=== PATIENT | female | born 2000 | race Two or more races ===

== ENCOUNTER 2019-07-25 21:09 | Emergency (ER) | payer MEDICAID ==
[~2019-07-25] VITALS: Ht 162.6 cm; Wt 81.6 kg
--- NOTE | 2019-07-25 21:15 | NUR ---
ED Nurse Note: IV ACCESS ESTABLISHED. BLOOD COLLECTED; SENT DOWN TO LAB.
[2019-07-25 21:30] VITALS: BP 142/98
[2019-07-25] MEDS ORDERED: Morphine Sulfate 4mg/ml Inj (IV USE ONLY) IVP ONE (21:30)
--- NOTE | 2019-07-25 21:30 | NUR ---
ED Nurse Note: PT ARRIVED WITH RA 861 D/T INCREASED VAGINAL BLEEDING X 1 DAY. PT IS RESTLESS, GROINING, AND APPEARS PALE. PER PT HER CALLED 911. [facility]
--- NOTE | 2019-07-25 21:45 | NUR ---
ED Nurse Note: PELVIC EXAM CONDUCTED BY ERMD, PT EXPELLED REMINANTS OF FETUS. SPECIMEN SENT TO LAB.
[2019-07-25 21:48] LABS: HEMATOCRIT 42.7 % (37.0-47.0); HEMOGLOBIN 14.6 G/DL (12.0-16.0); MEAN CORPUSCULAR VOLUME 88 FL (80-99); PLATELET COUNT 361 K/UL (150-450); RED BLOOD COUNT 4.87 M/UL (4.20-5.40); RED CELL DISTRIBUTION WIDTH 11.3 % (11.6-14.8); WHITE BLOOD COUNT 20.2 K/UL (4.8-10.8)
[2019-07-25 21:51] LABS: ANION GAP 15 mmol/L (5-15); BLOOD UREA NITROGEN 9 mg/dL (7-18); CARBON DIOXIDE 19 MMOL/L (21-32); CHLORIDE 104 MMOL/L (98-107); CREATININE 0.9 MG/DL (0.55-1.30); POTASSIUM 3.4 MMOL/L (3.5-5.1); SODIUM 138 MMOL/L (136-145)
[2019-07-25 21:55] LABS: ALANINE AMINOTRANSFERASE 17 U/L (12-78); ALBUMIN 3.8 G/DL (3.4-5.0); ALBUMIN/GLOBULIN RATIO 0.8 (1.0-2.7); ALKALINE PHOSPHATASE 89 U/L (46-116); ASPARTATE AMINO TRANSFERASE 16 U/L (15-37); BILIRUBIN,TOTAL 0.6 MG/DL (0.2-1.0)
--- NOTE | 2019-07-25 22:15 | NUR ---
ED Nurse Note: US WAS PAGED; AWAITING FOR ARRIVAL.
--- NOTE | 2019-07-25 22:30 | NUR ---
ED Nurse Note: PT MOTHER (KIERA) AT BEDSIDE.
--- NOTE | 2019-07-25 23:10 | NUR ---
ED Nurse Note: US AT BEDSIDE
[2019-07-25 23:30] VITALS: BP 134/97
[2019-07-26] VITALS: BP 100/62
--- NOTE | 2019-07-26 00:06 | Emergency Room Report ---
History of Present Illness General Chief Complaint: Complications Source: Patient Present Illness HPI 19-year-old female G3, P2 7 weeks presents with acute bleeding x1 day patient with lower abdominal pain no aggravating relieving factors severity is severe symptoms are constant, patient was scheduled for a D&C at [facility], patient is B+ Allergies: Coded Allergies: No Known Allergies (Unverified , 07/25/19) Patient History Past Medical History: see triage record Now: Yes Reviewed Nursing Documentation: PMH: Agreed; PSxH: Agreed Nursing Documentation-PMH Past Medical History: No Stated History Review of Systems All Other Systems: negative except mentioned in HPI Physical Exam Vital Signs Date Time Temp Pulse Resp B/P (MAP) Pulse Ox O2 Delivery O2 Flow Rate FiO2 07/25/19 21:01 97.3 92 26 142/98 (113) 98 Room Air Sp02 EP Interpretation: reviewed, normal General Appearance: alert, severe distress Head: normocephalic, atraumatic Eyes: bilateral eye PERRL, bilateral eye EOMI ENT: uvula midline, moist mucus membranes Neck: supple, thyroid normal, supple/symm/no masses Respiratory: lungs clear, no respiratory distress, no retraction, no accessory muscle use Cardiovascular #1: normal peripheral pulses, no edema, no gallop, no murmur, tachycardia Gastrointestinal: soft, tenderness - Suprapubically Genitourinary: other - Fetus is being expelled, fisher seal Alena Zamorano Musculoskeletal: normal inspection Neurologic: alert, oriented x3 Psychiatric: mood/affect normal Skin: no rash, warm/dry Medical Decision Making Diagnostic Impression: Primary Impression: Complication of Qualified Codes: O26.91 - related conditions, unspecified, first trimester Additional Impressions: Threatened Miscarriage ER Course 19-year-old female presents with threatened , currently actively aborting. Patient still has retained contents of conception on ultrasound Patient was to be scheduled for a D&C 07/26/2019 at [facility] Will transfer patient pain is well controlled H&H is stable, patient is no longer tachycardic pain is well controlled Spoke with Dr. Agee at 1:13AM who accepted patient, will transfer patient to [facility] Laboratory Tests Test 07/25/19 21:15 07/25/19 21:53 White Blood Count 20.2 K/UL (4.8-10.8) H Red Blood Count 4.87 M/UL (4.20-5.40) Hemoglobin 14.6 G/DL (12.0-16.0) Hematocrit 42.7 % (37.0-47.0) Mean Corpuscular Volume 88 FL (80-99) Mean Corpuscular Hemoglobin 29.9 PG (27.0-31.0) Mean Corpuscular Hemoglobin Concent 34.2 G/DL (32.0-36.0) Red Cell Distribution Width 11.3 % (11.6-14.8) L Platelet Count 361 K/UL (150-450) Mean Platelet Volume 8.0 FL (6.5-10.1) Neutrophils (%) (Auto) % (45.0-75.0) Lymphocytes (%) (Auto) % (20.0-45.0) Monocytes (%) (Auto) % (1.0-10.0) Eosinophils (%) (Auto) % (0.0-3.0) Basophils (%) (Auto) % (0.0-2.0) Differential Total Cells Counted 100 Neutrophils % (Manual) 72 % (45-75) Lymphocytes % (Manual) 19 % (20-45) L Monocytes % (Manual) 5 % (1-10) Eosinophils % (Manual) 2 % (0-3) Basophils % (Manual) 0 % (0-2) Band Neutrophils 2 % (0-8) Platelet Estimate Adequate Platelet Morphology Normal Red Blood Cell Morphology Normal Sodium Level 138 MMOL/L (136-145) Potassium Level 3.4 MMOL/L (3.5-5.1) L Chloride Level 104 MMOL/L (98-107) Carbon Dioxide Level 19 MMOL/L (21-32) L Anion Gap 15 mmol/L (5-15) Blood Urea Nitrogen 9 mg/dL (7-18) Creatinine 0.9 MG/DL (0.55-1.30) Estimate Glomerular Filtration Rate > 60 mL/min (>60) Glucose Level 108 MG/DL (74-106) H Calcium Level 10.0 MG/DL (8.5-10.1) Total Bilirubin 0.6 MG/DL (0.2-1.0) Aspartate Amino Transferase (AST) 16 U/L (15-37) Alanine Aminotransferase (ALT) 17 U/L (12-78) Alkaline Phosphatase 89 U/L (46-116) Total Protein 8.5 G/DL (6.4-8.2) H Albumin 3.8 G/DL (3.4-5.0) Globulin 4.7 g/dL Albumin/Globulin Ratio 0.8 (1.0-2.7) L Lipase 131 U/L (73-393) Human Chorionic Gonadotropin, Quant 3195 mIU/mL (1-6) H Prothrombin Time 10.6 SEC (9.30-11.50) Prothrombin Time INR 1.0 (0.9-1.1) PTT 26 SEC (23-33) CT/MRI/US Diagnostic Results CT/MRI/US Diagnostic Results : Impression Preliminary Findings Only See Final Report For Complete Findings US PELVIS: Limited exam due to intolerable exam per patient. Endometrium is thickened and heterogeneous in appearance (measurement cannot be taken). No definite hypervascularity is seen. May represent underlying blood products although retained products is not excluded given the heterogeneity and limitation of the exam. Right ovary is normal. No adnexal mass. Left adnexa is unremarkable. Left ovary was not seen. Radiologist: Steve Garcia MD Study ready at 00:06 and initial results transmitted at 00:16 Last Vital Signs Date Time Temp Pulse Resp B/P (MAP) Pulse Ox O2 Delivery O2 Flow Rate FiO2 07/25/19 21:58 97.4 07/25/19 21:01 92 26 142/98 (113) 98 Room Air Disposition: XFER [facility] - [facility] Condition: Stable Scripts No Active Prescriptions or Reported Meds Referrals: NOT CHOSEN IPA/,REFERRING (PCP) Polo Casarez MD Jul 26, 2019 00:06
--- NOTE | 2019-07-26 00:17 | Diagnostic Imaging Report ---
Indication: Vaginal bleeding, ten-week patient Technique: Transabdominal and transvaginal images of the pelvis Comparison: none Findings: Transvaginal imaging is very limited due to inability of patient to optimally tolerate. Transabdominal imaging is limited due to lack of bladder distention. Uterus measures 11.3 cm length by 5.8 cm AP. No intrauterine is demonstrated. There is ill-defined thickening of the endometrium which is minimally heterogeneous. The right ovary measures 3.3 cm in length. The left ovary cannot be visualized. No free cul-de-sac fluid. No gross myometrial abnormality. Impression: No intrauterine demonstrated. Given stated clinical history of prior documented intrauterine and history of passing clots, this most likely represents a spontaneous . Nonetheless, correlation with clinical findings and serial beta-hCGs is recommended. Consider follow-up sonography as indicated Minimal ill-defined thickening and heterogeneously T of the endometrium. Appearance is nonspecific, small amount of retained products of conception not completely excludable. No nonvisualization of the left ovary This agrees with the preliminary interpretation provided overnight by [facility] teleradiology service.
--- NOTE | 2019-07-26 00:30 | NUR ---
ED Nurse Note: ABRIL AT BEDSIDE
[2019-07-26 01:00] VITALS: BP 100/44
--- NOTE | 2019-07-26 01:00 | NUR ---
ED Nurse Note: PT WAS CLEANED AND CHANGED. BEDSHEETS AND LINENES REPLACED. ADDITIONAL BLANKETS PROVIDED
--- NOTE | 2019-07-26 02:20 | NUR ---
ED Nurse Note: PT CURRENTLY IN BED RESTING WAITING FOR TRANSPORT.
--- NOTE | 2019-07-26 02:20 | NUR ---
ED Nurse Note: FOLLOWED OF WITH [facility], PER CRN TRANSPORT INFO IS NOT READY. UNABLE TO ENDORSE PT TO [facility] AT THIS TIME
[2019-07-26 03:00] VITALS: BP 104/62
--- NOTE | 2019-07-26 03:07 | NUR ---
ED Nurse Note: TELEPHONE REPORT GIVEN TO ERICKA LUCAS FROM [facility] FOR CONTINUITY OF CARE
--- NOTE | 2019-07-26 03:27 | NUR ---
ED Nurse Note: EMS AT THE BEDSIDE, REPORT GIVEN TO [facility], CARE ENDORSED TO EMS STAFF. PT VSS, IV INTACT AND PATENT. SUMMARY OF CARE PROVIDED. PT TRANSFERRING TO [facility] FOR HIGHER LEVEL OF CARE.
[2019-07-26 03:30] VITALS: BP 104/62
--- NOTE | 2019-07-26 03:30 | NUR ---
ED Nurse Note: PT TRANSFERRED TO [facility] VIA [facility]. VSS. ABRIL AT BEDSIDE. PT TOOK ALL BELONGINGS. PT IS AOX4, ON ROOM AIR, SR, VSS. IV INTACT AND PATENT.
== END 2019-07-26 03:30 | disposition short-term general hospital (02) ==
LOC: EDBD 21:09 → EMR 21:30
DX: O03.4 Incomplete spontaneous abortion without complication (principal); O26.91 Pregnancy related conditions, unspecified, first trimester; Z3A.01 Less than 8 weeks gestation of pregnancy; R10.30 Lower abdominal pain, unspecified
CPT/HCPCS: 36415; 76830; 76856; 80053; 83690; 84702; 85007; 85025; 85610; 85730; 86850; 86900; 86901; 96361; 96374; 96375; J2270; J2405; Z7502; 99284